=== PATIENT | male | born 1995 | race Caucasian/White ===

== ENCOUNTER 2016-07-09 03:46 | Inpatient (IN) | payer BC, OTHER ==
[~2016-07-09] VITALS: Ht 175.3 cm; Wt 65.0 kg
[2016-07-09 04:17] LABS: MEAN CORPUSCULAR HEMOGLOBIN 29.2 pg (27.0-33.0); MEAN CORPUSCULAR HGB CONC 34.5 g/dl (32.0-36.5); MEAN CORPUSCULAR VOLUME 84.4 fl (80.0-96.0); RED CELL DISTRIBUTION WIDTH 13.6 % (11.5-14.5); WHITE BLOOD COUNT 9.3 K/mm3 (4.0-10.0)
[2016-07-09 04:36] LABS: AMPHETAMINES LEVEL URINE POSITIVE (NEGATIVE)
[2016-07-09 04:37] LABS: BENZODIAZEPINES URINE NEGATIVE (NEGATIVE); COCAINE METABOLITE URINE NEGATIVE (NEGATIVE); CONTROL LINE INT CTR LINE PRESENT; METHADONE URINE NEGATIVE (NEGATIVE); OPIATES URINE NEGATIVE (NEGATIVE); TRICYCLIC ANTIDEPRESS URINE NEGATIVE (NEGATIVE)
[2016-07-09 04:44] LABS: ALBUMIN 4.5 GM/DL (3.2-5.2); ALBUMIN/GLOBULIN RATIO 1.15 (1.00-1.93); ALKALINE PHOSPHATASE 182 U/L (45-117); ALT/SGPT 118 U/L (12-78); ANION GAP 13 MEQ/L (8-16); AST/SGOT 145 U/L (15-37); BILIRUBIN,DIRECT 0.3 MG/DL (0.0-0.2); BILIRUBIN,TOTAL 1.2 MG/DL (0.2-1.0); BLOOD UREA NITROGEN 18 MG/DL (7-18); CALCIUM LEVEL 8.9 MG/DL (8.5-10.1); CARBON DIOXIDE LEVEL 23 MEQ/L (21-32); CHLORIDE LEVEL 102 MEQ/L (98-107); CREATININE FOR GFR 1.03 MG/DL (0.70-1.30); GLOMERULAR FILTRATION RATE > 60.0 (>60); GLUCOSE, FASTING 76 MG/DL (70-105); POTASSIUM SERUM 4.2 MEQ/L (3.5-5.1); SODIUM LEVEL 138 MEQ/L (136-145); TOTAL PROTEIN 8.4 GM/DL (6.4-8.2)
[2016-07-09] MEDS ORDERED: traZODone 50 MG TAB PO PRN (05:45)
[2016-07-09] MEDS ORDERED: ACETAMINOPHEN TAB 650MG DOSE (2X325MG) PO PRN (05:45)
[2016-07-09] MEDS ORDERED: MAALOX 30 ML SUSP *UDC PO PRN (05:45)
[2016-07-09] MEDS ORDERED: MOM 30ML SUSPENSION UDC PO PRN (05:45)
[2016-07-09 08:16] VITALS: BP 122/57
--- NOTE | 2016-07-09 08:19 | EDDOCDS ---
Physician Documentation [facility] Name: Teofilo Harris Age: 21 yrs Sex: Male : 1995 Arrival Date: 07/09/2016 Time: 03:46 Bed U3 Private MD: Disposition: 07/09/16 05:18 Hospitalization ordered by Zakia Márquez for Inpatient Admission. Preliminary diagnosis is Major depressive disorder, single episode. - Bed requested for Admit. - Status is Inpatient Admission. jc4 - Condition is Stable. - Problem is new. - Symptoms are unchanged. Historical: - Allergies: No known drug Allergies; - Home Meds: 1. none - PMHx: none; - PSHx: none; - Social history: Smoking status: Patient uses tobacco products, heavy tobacco smoker. No barriers to communication noted, The patient speaks fluent Turkmen, Speaks appropriately for age. - Family history: Not pertinent. - : The pt / caregiver states he / she is not on anticoagulants. Home medication list is obtained from the patient. - Exposure Risk Screening:: None identified. Vital Signs: 07/09 03:55 BP 142 / 83; Pulse 101; Resp 18; Temp 97.0(O); Pulse Ox 98% ; Weight 65.77 kg / 145 mas lbs; Height 5 ft. 9 in. (175.26 cm); Pain 7/10; 07:50 BP 122 / 57; Pulse 72; Resp 16; Temp 96.8(O); Pulse Ox 98% on R/A; pjf 03:55 Body Mass Index 21.41 (65.77 kg, 175.26 cm) [facility] MDM: 03:56 MHE Legal paperwork was scanned into [employer] and attached to record. cl 03:58 Consult PFS/PSA/Club Manager ordered. br1 03:58 Consult PFS/PSA/Club Manager: Patient's case requires discussion with on-call br1 Psychiatrist ordered. 03:58 PSA/PFS to call Nursing Network Systems Integrator, to enter patient data on [place] Safe Act if patient br1 involuntarily admitted or transferred for SI or HI ordered. 03:58 Confirm accurate psychiatric medication list and times of last dosage ordered. br1 03:58 Detain Pt Until Medically/PFS Cleared ordered. br1 03:58 Acetaminophen Level Ordered. EDMS 03:58 Basic Metabolic Profile Ordered. EDMS 03:58 Complete Blood Count Ordered. EDMS 03:58 Drug Eval Toxicology ED Only Ordered. EDMS 03:58 Ethyl Alcohol (ethanol) Ordered. EDMS 03:58 Liver Profile Ordered. EDMS 03:58 Salicylate Level Ordered. EDMS 03:58 Thyroid Stimulating Hormone Ordered. EDMS 04:19 Financial registration complete. pm4 04:20 [facility] Payment Agreement was scanned into [employer] and attached to record. pm4 05:00 Consult PFS/PSA/Club Manager complete. cl 05:00 Consult PFS/PSA/Club Manager: Patient's case requires discussion with on-call cl Psychiatrist complete. 05:00 PSA/PFS to call Nursing Network Systems Integrator, to enter patient data on [place] Safe Act if patient cl involuntarily admitted or transferred for SI or HI complete. 05:14 Acetaminophen Level Reviewed. br1 05:14 Drug Eval Toxicology ED Only Reviewed. br1 05:14 Liver Profile Reviewed. br1 05:14 Salicylate Level Reviewed. br1 05:14 Basic Metabolic Profile Reviewed. br1 05:14 Complete Blood Count Reviewed. br1 05:14 Ethyl Alcohol (ethanol) Reviewed. br1 05:14 Thyroid Stimulating Hormone Reviewed. br1 05:14 Consult PFS/PSA/Socail Worker: Cleared medically for eval ordered. br1 05:20 Consult PFS/PSA/Socail Worker: Cleared medically for eval complete. cl 05:35 MHE Legal paperwork was scanned into [employer] and attached to record. cl 05:35 Admit to IMHU: ordered. EDMS 05:36 REGULAR DIET ordered. EDMS Signatures: Dispatcher [employer] EDMS Chadwick Jose, PSA PSA cl Jonny Parikh MD MD br1 Jasmin Childers, RN RN jc4 Caitlin Cordova RN RN sls1 Aimee Corey,RN RN nn1 Matthew Walters, Reg Reg pm4 The chart was reviewed and I authenticate all verbal orders and agree with the evaluation and treatment provided.Attachments: 04:20 [facility] Payment Agreement pm4 MTDD
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
--- NOTE | 2016-07-09 10:48 | HPEPDOC ---
Medical History and Physical Date of Admission Jul 09, 2016 at 08:10 History and Physical PCP: Dr Call ATTENDING: Dr. Stanton Gaines HPI: 21yoM admitted to [facility] for unspecified depressive disorder, being medically examined today. Patient states he fell on the ground approximately 2 months ago and injured his left shoulder. He states he has left shoulder pain related to this. He was advised to wear a sling at the time however he states he only wore it for approximately 2 hours. He has pain with range of motion of the shoulder. He denies radiation of pain down the arm or up into his neck. He denies weakness in arm. He denies numbness or tingling in the hand or arm. He states it is an achy pain. He denies neck pain. Denies elbow pain. Denies wrist pain. Denies reduced vice president of human resources strength. He denies low back pain. No weakness, numbness, or tingling in lower extremities. He reports a laceration of his left middle finger which he states occurred Thursday evening when he was cutting a dog rope. This occurred with a razor knife. He does not recall his last tetanus vaccination. Denies any fevers, chills, weakness, fatigue, BARRERA, CP, SOB, cough, palpitations, abdominal pain, N/V /D or changes in bowel or bladder habits. PMHx: ADHD Substance use Tobacco use Left shoulder pain PSHX: Denies SOCHX: Resides in: [facility] Marital Status: Kids: 1 Employment: Unemployed Tobacco use: One pack per day ETOH: Twice per month 5-6 drinks Illicit Drugs: Marijuana daily. Methamphetamine, heroin, crack cocaine, cocaine. Adderall few times per month, gets from street. IV Drug Use: Heroin. Subsequently Pt states "anything" but does not elaborate. Tattoos done unprofessionally: Patient has several tattoos, patient states all are completed unprofessionally. No previous HIV/hepatitis screening per patient. FAMHX: Mother: Alive, well Father: , suicide. 2005 Siblings: 2 brothers, 2 sisters Alive, well Children: Alive, well Unexpected deaths due to medical reasons: None. ROS: As noted in HPI, otherwise 11pt ROS of systems reviewed and unremarkable PE: GEN: 21 yoM, appears stated age. Well-nourished, well developed. No acute distress. Alert and oriented x 3. Reluctant at times to provide history, avoids eye contact. Somewhat agitated at times. HEENT: Normocephalic, atraumatic. Pupils are equal, round, and reactive to light. Extraocular movements are intact. No nystagmus appreciated. Sclera are nonicteric. Conjunctiva without injection. Nose midline. Nasal turbinates without bogginess. EACs both patent BL. TMs both visualized and gross with good cone of light, no bulging or erythema. No facial asymmetry. Moist mucous membranes. Dentition fair. Pharynx pink and moist, no cobblestoning. Neck supple , trachea midline. No lymphadenopathy or thyromegaly appreciated. CHEST: Regular rate and rhythm, +S1, +S2 LUNGS: Clear to auscultation bilaterally. No wheezes, rales, or rhonchi. Breathing appears symmetric and easy. Patient is speaking in full sentences. No accessory muscle use. ABD: Round, soft, non-tender, non-distended. +Bowel sounds throughout. No rebound or guarding. No costovertebral angle tenderness. EXT: Pulses 2+ bilaterally dorsalis pedis and radial. No lower extremity edema appreciated. SKIN: [place], dry, warm. Capillary refill <2sec. No rashes. There is an approximate 1 cm laceration palmar aspect distal phalanx left middle finger. No drainage/bleeding. no erythema. NEURO: Alert and oriented x 3. Cranial nerves III-XII are intact. No focal deficits appreciated. There is no noted deformity of the left shoulder. There is tenderness with palpation around the joint. Patient has good range of motion and strength although reports pain with testing. Normal sensation in left upper extremity. Normal vice president of human resources strength. EKG: pending. A&P: 21yoM admitted to [facility] for unspecified depressive disorder 1. Psych. Plan per Psychiatry. Obtain baseline EKG to assure the safety of psychiatric medications as they can prolong the QT interval. 2. Nicotine dependence. Patch available. 3. Left Finger laceration. Apply bacitracin. Dry dressing BID. Monitor for signs of infection. Update Tdap. 4. Left shoulder pain. Check XR Left shoulder. Tylenol as needed. 5. IVDU/history of tattoos completed unprofessionally. Patient is adamantly declining HIV screening. 6. Elevated LFTs. Also noted to be elevated ED visit 06/27. Add hepatitis profile to admission labs. Check RUQ U/S. Recheck CMP in AM. Pt aware of testing. 7. Follow up with PCP on discharge. Dr Call. 8. Substance abuse. Per psychiatry. 9. Staff member present throughout examination, safety scientist Ed. Vital Signs Vital Signs Label Value Date Time Patient Temperature 96.8 degrees F 07/09/16 0816 Pulse 72 07/09/16 0816 Respiratory Rate 16 bpm 07/09/16 0816 Blood Pressure Assessment 122/57 (78) 07/09/16 0816 Laboratory Data Labs 24H Laboratory Tests 2 07/09/16 04:05: Acetaminophen Level < 2.0L, Aspartate Amino Transf (AST/SGOT) 145H, Alanine Aminotransferase (ALT/SGPT) 118H, Alkaline Phosphatase 182H, Total Bilirubin 1.2H, Direct Bilirubin 0.3H, Albumin 4.5, Albumin/Globulin Ratio 1.15, Anion Gap 13, Calcium Level 8.9, Ethyl Alcohol Level < 0.003, Glomerular Filtration Rate > 60.0, Salicylates Level 1.8L, Thyroid Stimulating Hormone (TSH) 1.020, Total Protein 8.4H 07/09/16 04:06: Urine Amphetamine Level POSITIVEH, Urine Benzodiazepines Screen NEGATIVE, Urine Cannabinoids POSITIVEH, Urine Cocaine Metabolite NEGATIVE, Urine Opiates Screen NEGATIVE, Urine Barbiturates, Qualitative NEGATIVE, Urine Methadone Screen NEGATIVE, Urine Tricyclic Antidepressants NEGATIVE CBC/BMP Laboratory Tests 07/09/16 04:05 Red Blood Count 5.39, Mean Corpuscular Volume 84.4, Mean Corpuscular Hemoglobin 29.2, Mean Corpuscular Hemoglobin Concent 34.5, Red Cell Distribution Width 13.6 Home Medications No Active Prescriptions or Reported Meds Allergies Coded Allergies: No Known Allergies (Unverified , 07/09/16) Melva Ochoa Jul 09, 2016 10:48
[2016-07-09] MEDS: BACITRACIN OINT 30GM TOP SCH ×2 (11:35→21:29)
[2016-07-09] MEDS: NICOTINE 21MG/24HR 1 EA TRANSDERMAL TD SCH (11:36)
[2016-07-09] MEDS ORDERED: ADACEL/BOOSTRIX VACCINE (DIPHTH/PERTUSS/ACELL/TETANUS)0.5ML SYR (90715) IM ONE (13:00)
--- NOTE | 2016-07-09 13:01 | REP ---
Left shoulder series: Three views. History: Pain. Findings: The left glenohumeral and acromioclavicular joints are normally aligned. No fracture or subluxation is seen. Periarticular soft tissues are unremarkable. Impression: Negative left shoulder views. Signed by Bro Paige MD 07/09/2016 12:52 P
--- NOTE | 2016-07-09 18:05 | HPEPDOC ---
[facility] History & Physical History and Physical DATE OF ADMISSION: Jul 09, 2016 at 08:10 CHIEF COMPLAINT: "I didn't want to kill myself, I don't know how I ended up here , I don't need to be here." HISTORY OF THE PRESENT ILLNESS: Patient is a patient is 21-year-old, , father, unemployed male who was brought into ER by [facility] on a legal pickup order. Patient indicates he does not know why the police came to his house, indicates he had been arguing with his , informs va underwriter "I don't know what the fight was about." Per record, patient was seen in the emergency room in 2012 for similar problem involving verbal altercation in home at which time he apparently threatened to kill other alliance party, self and blow up a school. Patient denies memory of aforementioned events. Regarding current admission, per record, [facility] responded to call involving a domestic dispute, patient was found to have engaged in suicide preparatory behavior involving hanging a noose and arranging a ladder in garage. Patient states, "the rope had been there before I ever moved in and I had brought the ladder into the garage because I needed it for something else." When questioned about laceration to fingers which, per record, occurred while patient was cutting rope, patient indicates "I was cutting rope earlier in the day to fix my dog's chain, it had nothing to do with me wanting to kill myself." Per record, dispute with pertained to not allowing him to go purchase drugs. Patient denies current symptoms of anxiety and depression, denies suicidal and homicidal ideation, denies audiovisual hallucinations, and denies urge to engage in self-injurious behavior. Patient denies history of suicide attempt, informs va underwriter 1 at age 10 or 11 he thought about killing himself after his father committed suicide by shotgun. Patient indicates at the time he possessed no plan or intent. Patient initially denies any substance use/abuse at time of incident, then informs va underwriter he had had "a couple of beers, maybe 2 or 3" just prior to altercation with . When asked about his UDS results, patient indicates he has a history of being diagnosed with ADHD, has a history of taking Adderall and had taken some "left over medication; I had some saved, it was my last one" just prior to incident. Patient denies symptoms of withdrawal or craving. Patient denies history of discomfort in social settings, denies history of panic , denies compulsive behaviors, and denies history of irritability, agitation, aggression, denies history of unsanctioned violence and denies having access to weapons. Patient denies symptoms of reexperiencing, avoidance, and hypervigilance, denies history of mood instability, hypomania or staci, and denies dissociative symptoms. When asked about impulsivity patient states, "maybe," indicates appetite is stable and denies recent changes to weight. Patient denies challenges with sleep describing as "great," denies nightmares symptoms. Patient informs va underwriter he feels prepared to discharge to home. When asked about his and child's whereabouts patient states, "they might be her parents or they might be home I'm not sure." Patient denies having safety concerns related to himself, his , or his child in the home. PAST PSYCHIATRIC HISTORY: Prior Psychiatric Disorder: Patient denies, however, was seen in ER in 2012 for similar symptoms, in addition to expression of HI. Out Patient Treatment: Patient denies, however, told behavioral health worker at intake he participated in outpatient treatment X 1 6 years ago for substance abuse Suicidal/Self injurious: Patient denies history of suicide attempt, endorses suicidal ideation with no plan or intent X 1 at age 10 or 11 just after father' s suicide Psychotropic Medication History: Adderall XR 25 mg po BID, states he was last seen by provider and prescribed medication in 2014 and notes he would still be taking medication and had been covered by his insurance. Patient denies history of taking other psychotropic medications. Of note: I-Stop query completed, no data on patient found in system. MEDICAL HISTORY: Patient denies chronic health concerns, denies history of seizure and head injury. Patient states he fell 2 months ago and injured shoulder, has sling and does not wear. Laceration to finger, denies symptoms indicating infection and denies pain. Elevated LFT's with Hep C results pending. FAMILY PSYCHIATRIC HISTORY: Patient denies family history of psychiatric problems. When questioned about father's suicide by shotgun patient states "he was an alcoholic." Patient denies knowledge of other family members participation in inpatient or outpatient psychiatric treatment, denies knowledge of family members taking psychotropic medications. SOCIAL HISTORY: Patient indicates he was born and raised in [place], [place], was raised as mother, indicates father committed suicide by way of shotgun when patient was 10 or 11 years old. Patient indicates he has 4 siblings , notes he feels he has adequate support system. Patient lives in a trailer with his of 5 months, has a 1 year 9 month old child with , denies marital tension and indicates marriage is positive and supportive. Patient denies previous marriages or children from other relationships. Patient denies history of abuse, trauma or witnessing domestic violence in the home while growing up. Patient is unemployed and states he spends much of his days caring for his son as his is employed as a caregiver to senior citizens. 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 SUBSTANCE ABUSE HISTORY: Patient initially denies history of substance abuse. Patient indicates he smokes marijuana "daily, as much as I can. My encourages me to smoke because it makes my ADHD go away." Patient's reports alcohol consumption 2 times per month, 5-6 drinks per episode. Patient smokes approximately 1 pack of cigarettes per day. Patient also states he takes "leftover" Adderall which he states he was previously prescribed, then states he last saw a prescriber in 2014. Per record, it appears patient has a history of being diagnosed with polysubstance abuse including IV heroin use, crack cocaine, and cocaine. LEGAL HISTORY: Patient states to a half years ago he was in care home for 9 months for probation violation. Patient is evasive but notes he was on probation for driving without a license 11 times. Per record, it appears patient was in care home for drug-related charges and harassment. CURRENT/HOME MEDICATIONS: Patient denies currently taking prescribed medications , notes he occasionally took Adderall that he had "left over" from prior prescription. ALLERGIES: Please see below. LABORATORY DATA: Please see below. Labs on intake indicated elevated bilirubin, AST, ALT, alkaline phosphatase, and protein. Hep C lab results pending. UDS on admission was positive for amphetamine and cannabinoids. 07/09/16 EKG - SINUS RHYTHM NO PRIOR TRACING IN THE SYSTEM. MINIMAL ST SEGMENT CHANGES NOTED MAY BE RELATED TO EARLY REPOLARIZATION REVIEW OF SYSTEMS: Please refer to PA evaluation in record VITAL SIGNS: B/P 122/57, P 72, R 16, T 96.8 MENTAL STATUS EXAMINATION: Patient is a 21 year old unemployed, , father of 1 child male, who is superficially cooperative, evasive, presents as disheveled, dressed in hospital clothing, of thin build, appears older than stated age. Speech: Is of normal rate, rhythm, volume, coherent Thought processes: Clear, goal-directed Rate of thoughts: Within normal limits. Thought content: Logical. Abstract reasoning: Appears intact Associations: Intact Abnormal or psychotic thoughts: denies hallucinations, Delusions, Preoccupation with violence, Homicidal or suicidal ideation, and Obsessions.] Judgment: Poor Insight: Poor Oriented to: Time, place and person. Recent and Remote Memory: Appears intact, though patient reports he is unable to remember events which occurred just prior to police bringing him to Hospital. Attention Span and Concentration: Limited. Language: Normal. Fund of knowledge: Appears adequate but requires further evaluation. Mood: "Good." No lability reported or noted Affect: Constricted ASSESSMENT: Patient appears to be adjusting to unit, isolates to room at times, is visible on unit at other times, has begun attending some groups. Patient has been eating regularly and denies challenges related to sleep. Patient is evasive , generally denies memory of events which occurred just prior to hospitalization , indicates he and are arguing for unknown reason, denies marital tension. Patient minimizes events leading to current hospitalization, is superficially cooperative with va underwriter, denies need to be in psychiatric hospital, denies feeling suicidal prior to police responding, and indicates he feels prepared for discharge today. Patient denies suicidal and homicidal ideation and is able to agree to alert staff should symptoms of anxiety, depression, or suicidality emerge/reemerge. Patient denies need for medication to address symptoms of anxiety depression, makes request for Adderall XR 25 mg by mouth twice a day, states was last prescribed Adderall by a provider in 2012. Patient states he has had phone "good" contact with , indicates a friend of his is planning to visit him this evening. Patient indicates discharge plan is for him to return home to residence where he lives with and child. DIAGNOSES: Unspecified mood disorder, polysubstance use disorder, rule out major depressive disorder, ADHD by report, PROBLEM LIST: Suicidal ideation Anxiety Depression Impulsivity Substance abuse issues Limited judgment/insight Financial strain Relationship tension MANAGEMENT PLAN: Encourage patient to consider taking psychotropic medication to address symptoms of anxiety and depression if appropriate Maintain safety precautions Patient to attend groups and participate in unit programming to develop coping strategies Obtain collateral information in effort to further evaluate patient's psychiatric status and viability of discharge plan Evaluate need to contact CPS Engage patient in discharge planning process and arrange meeting with support system to ensure safe discharge planning when appropriate Patient to follow up with PCM upon discharge ESTIMATED LENGTH OF STAY: 5 -7 days. TIME SPENT COUNSELING AND COORDINATING INITIAL CARE: 50 minutes. Laboratory Data 24H Labs Laboratory Tests 2 07/09/16 04:05: Acetaminophen Level < 2.0L, Aspartate Amino Transf (AST/SGOT) 145H, Alanine Aminotransferase (ALT/SGPT) 118H, Alkaline Phosphatase 182H, Total Bilirubin 1.2H, Direct Bilirubin 0.3H, Albumin 4.5, Albumin/Globulin Ratio 1.15, Anion Gap 13, Calcium Level 8.9, Ethyl Alcohol Level < 0.003, Glomerular Filtration Rate > 60.0, Hepatitis A IgM Antibody NEGATIVE, Hepatitis B Core IgM Antibody NEGATIVE, Hepatitis B Surface Antigen NEGATIVE, Hepatitis C Antibody Index > 11.0H, Salicylates Level 1.8L, Thyroid Stimulating Hormone (TSH) 1.020, Total Protein 8.4H 07/09/16 04:06: Urine Amphetamine Level POSITIVEH, Urine Benzodiazepines Screen NEGATIVE, Urine Cannabinoids POSITIVEH, Urine Cocaine Metabolite NEGATIVE, Urine Opiates Screen NEGATIVE, Urine Barbiturates, Qualitative NEGATIVE, Urine Methadone Screen NEGATIVE, Urine Tricyclic Antidepressants NEGATIVE CBC/BMP Laboratory Tests 07/09/16 04:05 Red Blood Count 5.39, Mean Corpuscular Volume 84.4, Mean Corpuscular Hemoglobin 29.2, Mean Corpuscular Hemoglobin Concent 34.5, Red Cell Distribution Width 13.6 Medications No Active Prescriptions or Reported Meds Allergies Coded Allergies: No Known Allergies (Unverified , 07/09/16) Sue Lin Jul 09, 2016 18:05
[2016-07-09 18:13] VITALS: BP 127/58
--- NOTE | 2016-07-09 18:53 | ECGEPIP ---
Stationary ECG Study [facility] Test Date: 2016-07-09 Pat Name: PETAR SOSA Department: Room: [place] [address] Gender: M Steel Roller: LORY : 1995 Requested By: Melva Ochoa Order Number: [id number] Reading MD: Lenin Ramos Measurements Intervals [place] Rate: 73 P: 44 WV: 129 QRS: 76 QRSD: 90 T: 67 QT: 375 QTc: 414 Interpretive Statements SINUS RHYTHM NO PRIOR TRACING IN THE SYSTEM. MINIMAL ST SEGMENT CHANGES NOTED MAY BE RELATED TO EARLY REPOLARIZATION Electronically Signed On 07-09-2016 18:52:50 EST by Lenin Ramos
[2016-07-10 06:39] VITALS: BP 136/75
[2016-07-10 06:51] LABS: ALBUMIN/GLOBULIN RATIO 1.14 (1.00-1.93); ALKALINE PHOSPHATASE 177 U/L (45-117); ALT/SGPT 89 U/L (12-78); ANION GAP 5 MEQ/L (8-16); AST/SGOT 70 U/L (15-37); BILIRUBIN,TOTAL 0.5 MG/DL (0.2-1.0); BLOOD UREA NITROGEN 22 MG/DL (7-18); CARBON DIOXIDE LEVEL 31 MEQ/L (21-32); CHLORIDE LEVEL 105 MEQ/L (98-107); CREATININE FOR GFR 1.03 MG/DL (0.70-1.30); GLOMERULAR FILTRATION RATE > 60.0 (>60); GLUCOSE, FASTING 88 MG/DL (70-105); POTASSIUM SERUM 4.2 MEQ/L (3.5-5.1); SODIUM LEVEL 141 MEQ/L (136-145); TOTAL PROTEIN 7.5 GM/DL (6.4-8.2)
--- NOTE | 2016-07-10 07:09 | REP ---
Clinical: Elevated liver function tests. Technique: He scale ultrasound using curved array transducer. Findings: The liver and pancreas are normal in contour, size, and echogenicity without focal hepatic or pancreatic lesions identified. The gallbladder is normal without gallstones, wall thickening or pericholecystic fluid. No biliary ductal dilatation is appreciated, and the common bile duct measures 2.3 mm diameter. The right kidney is normal in reniform shape without hydronephrosis and measures 9.8 x 5.9 x 4.4 cm. No ascites. Visualized portions of the abdominal aorta normal. Impression: Normal right upper quadrant and gallbladder abdominal ultrasound. Signed by Andres Osborn MD 07/10/2016 07:00 A
[2016-07-10] MEDS: NICOTINE 21MG/24HR 1 EA TRANSDERMAL TD SCH (09:45)
[2016-07-10] MEDS: BACITRACIN OINT 30GM TOP SCH ×2 (09:46→20:13)
[2016-07-10 13:22] LABS: AMPHETAMINES LEVEL URINE POSITIVE (NEGATIVE); BENZODIAZEPINES URINE NEGATIVE (NEGATIVE); COCAINE METABOLITE URINE NEGATIVE (NEGATIVE); CONTROL LINE INT CTR LINE PRESENT; METHADONE URINE NEGATIVE (NEGATIVE); OPIATES URINE NEGATIVE (NEGATIVE); TRICYCLIC ANTIDEPRESS URINE NEGATIVE (NEGATIVE)
--- NOTE | 2016-07-10 14:12 | IPNPDOC ---
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 Patient denies all symptoms of anxiety and depression, suicidal and homicidal ideation, audiovisual hallucinations, and urge to engage in self-injurious behavior. Patient continues to deny need for inpatient treatment, continues to deny that he was engaging in preparatory behavior to hang self prior to hospitalization. Patient indicates he still does not remember what he was arguing with his about, remains vague about legal history but notes today he was on probation for multiple consonant driving without a license, went to halfway for violating probation due to drug-related charges. Patient indicates harassment charge occurred in 2011 and was an unrelated issue. Patient denies challenges with sleep, indicates appetite, concentration and focus, and energy levels are "fine." Patient continues to deny symptoms of irritability or agitation, impulsivity, withdrawal or craving, and physical pain. Patient today indicates he plans to discharge to home of a friend noting, "until I can go back home," is evasive when asked why he cannot return home but notes "my is now staying with her parents but she may be going back home." Patient continues to deny safety issues related to self, , or child in the home. Of note: I-Stop query completed 07/09/16, no data on patient found in system. CURRENT MEDICATIONS: Please see below. VITAL SIGNS: Please see below. NEW TEST RESULTS: Labs on intake indicated elevated bilirubin, AST, ALT, alkaline phosphatase, and protein. Hep C lab results pending. UDS on admission was positive for amphetamine and cannabinoids. 07/09/16 EKG - SINUS RHYTHM NO PRIOR TRACING IN THE SYSTEM. MINIMAL ST SEGMENT CHANGES NOTED MAY BE RELATED TO EARLY REPOLARIZATION. PA is monitoring elevated LFTs and laceration to finger; patient denies symptoms indicating infection and denies pain. Liver ultrasound completed 07/10/16 with normal results. MENTAL STATUS EXAMINATION: Patient is a 21 year old unemployed, , father of 1 child male, who remains superficially cooperative, evasive, presents with improved personal hygiene, dressed in hospital clothing, of thin build, appears stated age. Speech: Is of normal rate, rhythm, volume, coherent Thought processes: Clear, goal-directed Rate of thoughts: Within normal limits. Thought content: Logical. Abstract reasoning: Appears intact Associations: Intact Abnormal or psychotic thoughts: denies hallucinations, Delusions, Preoccupation with violence, Homicidal or suicidal ideation, and Obsessions.] Judgment: Poor Insight: Poor Oriented to: Time, place and person. Recent and Remote Memory: Appears intact, though patient reports he is unable to remember events which occurred just prior to police bringing him to Hospital. Attention Span and Concentration: Limited. Language: Normal. Fund of knowledge: Appears adequate but requires further evaluation. Mood: "Good, fine, no problem." No lability reported or noted Affect: Constricted DIAGNOSES: Unspecified mood disorder, polysubstance use disorder, rule out major depressive disorder, ADHD by report, ASSESSMENT: Patient appears to be adjusting to unit, is visible in milieu, has been attending groups, engaging with select peers. Patient has been eating regularly and denies challenges related to sleep. Patient remains evasive, continues to deny memory of events which occurred just prior to hospitalization , indicates he and were arguing for unknown reason, denies marital tension. Patient continues to minimize events leading to current hospitalization , remains superficially cooperative with marketing copywriter, denies need to be in psychiatric hospital, denies feeling suicidal prior to police responding, and indicates he feels prepared for discharge "anytime." Patient has declined to sign an ISAIAH for contact with CPS, development coordinator is attempting to obtain collateral information to ensure safe discharge planning. Patient denies suicidal and homicidal ideation and is able to agree to alert staff should symptoms of anxiety, depression, or suicidality emerge/reemerge. Patient continues to deny need for medication to address symptoms of anxiety depression , makes no request today for Adderall XR 25 mg by mouth twice a day. Patient states he maintains phone contact , is evasive, but indicates today plan is now to discharge to home with friend until he and are able to agree that he may return to the family home. MANAGEMENT PLAN: Encourage patient to consider taking psychotropic medication to address symptoms of anxiety and depression if appropriate Maintain safety precautions Patient to attend groups and participate in unit programming to develop coping strategies Discharge cornea are has initiated process for obtaining collateral information in effort to further evaluate patient's psychiatric status and viability of discharge plan Evaluate need to contact CPS Engage patient in discharge planning process and arrange meeting with support system to ensure safe discharge planning when appropriate Patient to follow up with PCM upon discharge TIME SPENT: 35 minutes. Vital Signs Vital Signs Date Time Temp Pulse Resp B/P Pulse Ox O2 Delivery O2 Flow Rate FiO2 07/10/16 06:39 98.1 66 16 136/75 Laboratory Data 24H Labs Laboratory Tests 2 07/10/16 00:00: Urine Amphetamine Level POSITIVEH, Urine Benzodiazepines Screen NEGATIVE, Urine Cannabinoids POSITIVEH, Urine Cocaine Metabolite NEGATIVE, Urine Opiates Screen NEGATIVE, Urine Barbiturates, Qualitative NEGATIVE, Urine Methadone Screen NEGATIVE, Urine Tricyclic Antidepressants NEGATIVE 07/10/16 06:24: Blood Urea Nitrogen 22H, Creatinine 1.03, Sodium Level 141, Potassium Level 4.2 , Chloride Level 105, Carbon Dioxide Level 31, Calcium Level 9.0, Aspartate Amino Transf (AST/SGOT) 70H, Alanine Aminotransferase (ALT/SGPT) 89H, Alkaline Phosphatase 177H, Total Bilirubin 0.5#, Total Protein 7.5, Albumin 4.0, Albumin/ Globulin Ratio 1.14, Anion Gap 5L, Glomerular Filtration Rate > 60.0 CBC/BMP Laboratory Tests 07/10/16 06:24 Calcium Level 9.0, Aspartate Amino Transf (AST/SGOT) 70 H, Alanine Aminotransferase (ALT/SGPT) 89 H, Alkaline Phosphatase 177 H, Total Bilirubin 0.5 #, Total Protein 7.5, Albumin 4.0 Current Medications Current Medications Acetaminophen (Tylenol) 650 mg Q6HP PRN PO HEADACHE or DISCOMFORT; Start at 05:45; Stop 08/08/16 at 05:44 Al Hydrox/Mg Hydrox/Simethicone (Mylanta) 30 ml Q4HP PRN PO HEARTBURN/ INDIGESTION; Start 07/09/16 at 05:45; Stop 08/08/16 at 05:44 Bacitracin (Bacitracin Oint) 1 dose BID TOP Last administered on 07/10/16t 09: 46; Start 07/09/16 at 09:00; Stop 08/08/16 at 08:59 Home Med (Med Rec Complete!) ASDIRECTED XX ; Start 07/09/16 at 06:00; Stop at 06:05; Status DC Magnesium Hydroxide (Milk Of Magnesia) 30 ml DAILYPRN PRN PO CONSTIPATION; Start 07/09/16 at 05:45; Stop 08/08/16 at 05:44 Nicotine (Nicoderm Cq 21mg) 1 patch DAILY TD Last administered on 07/10/16 09: 45; Start 07/09/16 at 09:00; Stop 08/08/16 at 08:59 Trazodone HCl (Desyrel) 50 mg QHSP PRN PO INSOMNIA; Start 07/09/16 at 05:45; Stop 08/08/16 at 05:44 Allergies Coded Allergies: No Known Allergies (Unverified , 07/09/16) Sue Lin Jul 10, 2016 14:12 Aminotransferase (ALT/SGPT) 89 H, Alkaline Phosphatase 177 H, Total Bilirubin 0.5 #, Total Protein 7.5, Albumin 4.0 Current Medications Current Medications Acetaminophen (Tylenol) 650 mg Q6HP PRN PO HEADACHE or DISCOMFORT; Start at 05:45; Stop 08/08/16 at 05:44 Al Hydrox/Mg Hydrox/Simethicone (Mylanta) 30 ml Q4HP PRN PO HEARTBURN/ INDIGESTION; Start 07/09/16 at 05:45; Stop 08/08/16 at 05:44 Bacitracin (Bacitracin Oint) 1 dose BID TOP Last administered on 07/10/16 09: 46; Start 07/09/16 at 09:00; Stop 08/08/16 at 08:59 Home Med (Med Rec Complete!) ASDIRECTED XX ; Start 07/09/16 at 06:00; Stop at 06:05; Status DC Magnesium Hydroxide (Milk Of Magnesia) 30 ml DAILYPRN PRN PO CONSTIPATION; Start 07/09/16 at 05:45; Stop 08/08/16 at 05:44 Nicotine (Nicoderm Cq 21mg) 1 patch DAILY TD Last administered on 07/10/16 09: 45; Start 07/09/16 at 09:00; Stop 08/08/16 at 08:59 Trazodone HCl (Desyrel) 50 mg QHSP PRN PO INSOMNIA; Start 07/09/16 at 05:45; Stop 08/08/16 at 05:44 Allergies Coded Allergies: No Known Allergies (Unverified , 07/09/16) Sue Lin Jul 10, 2016 14:12 Impulsivity Substance abuse issues Limited judgment/insight Financial strain Relationship tension MANAGEMENT PLAN: Encourage patient to consider taking psychotropic medication to address symptoms of anxiety and depression if appropriate Maintain safety precautions Patient to attend groups and participate in unit programming to develop coping strategies Obtain collateral information in effort to further evaluate patient's psychiatric status and viability of discharge plan Evaluate need to contact CPS Engage patient in discharge planning process and arrange meeting with support system to ensure safe discharge planning when appropriate Patient to follow up with PCM upon discharge ESTIMATED LENGTH OF STAY: 5 -7 days. TIME SPENT COUNSELING AND COORDINATING INITIAL CARE: 50 minutes. Vital Signs Vital Signs Date Time Temp Pulse Resp B/P Pulse Ox O2 Delivery O2 Flow Rate FiO2 07/10/16 06:39 98.1 66 16 136/75 Laboratory Data 24H Labs Laboratory Tests 2 07/10/16 00:00: Urine Amphetamine Level POSITIVEH, Urine Benzodiazepines Screen NEGATIVE, Urine Cannabinoids POSITIVEH, Urine Cocaine Metabolite NEGATIVE, Urine Opiates Screen NEGATIVE, Urine Barbiturates, Qualitative NEGATIVE, Urine Methadone Screen NEGATIVE, Urine Tricyclic Antidepressants NEGATIVE 07/10/16 06:24: Blood Urea Nitrogen 22H, Creatinine 1.03, Sodium Level 141, Potassium Level 4.2 , Chloride Level 105, Carbon Dioxide Level 31, Calcium Level 9.0, Aspartate Amino Transf (AST/SGOT) 70H, Alanine Aminotransferase (ALT/SGPT) 89H, Alkaline Phosphatase 177H, Total Bilirubin 0.5#, Total Protein 7.5, Albumin 4.0, Albumin/ Globulin Ratio 1.14, Anion Gap 5L, Glomerular Filtration Rate > 60.0 CBC/BMP Laboratory Tests 07/10/16 06:24 Calcium Level 9.0, Aspartate Amino Transf (AST/SGOT) 70 H, Alanine Aminotransferase (ALT/SGPT) 89 H, Alkaline Phosphatase 177 H, Total Bilirubin 0.5 #, Total Protein 7.5, Albumin 4.0 Current Medications Current Medications Acetaminophen (Tylenol) 650 mg Q6HP PRN PO HEADACHE or DISCOMFORT; Start at 05:45; Stop 08/08/16 at 05:44 Al Hydrox/Mg Hydrox/Simethicone (Mylanta) 30 ml Q4HP PRN PO HEARTBURN/ INDIGESTION; Start 07/09/16 at 05:45; Stop 08/08/16 at 05:44 Bacitracin (Bacitracin Oint) 1 dose BID TOP Last administered on 07/10/16 09: 46; Start 07/09/16 at 09:00; Stop 08/08/16 at 08:59 Home Med (Med Rec Complete!) ASDIRECTED XX ; Start 07/09/16 at 06:00; Stop at 06:05; Status DC Magnesium Hydroxide (Milk Of Magnesia) 30 ml DAILYPRN PRN PO CONSTIPATION; Start 07/09/16 at 05:45; Stop 08/08/16 at 05:44 Nicotine (Nicoderm Cq 21mg) 1 patch DAILY TD Last administered on 07/10/16 09: 45; Start 07/09/16 at 09:00; Stop 08/08/16 at 08:59 Trazodone HCl (Desyrel) 50 mg QHSP PRN PO INSOMNIA; Start 07/09/16 at 05:45; Stop 08/08/16 at 05:44 Allergies Coded Allergies: No Known Allergies (Unverified , 07/09/16) Sue Lin Jul 10, 2016 14:12
[2016-07-10 18:00] VITALS: BP 124/59
[2016-07-11 06:48] VITALS: BP 130/73
[2016-07-11 07:29] LABS: ALBUMIN 3.8 GM/DL (3.2-5.2); ALBUMIN/GLOBULIN RATIO 1.06 (1.00-1.93); ALKALINE PHOSPHATASE 163 U/L (45-117); ALT/SGPT 77 U/L (12-78); ANION GAP 6 MEQ/L (8-16); AST/SGOT 51 U/L (15-37); BILIRUBIN,TOTAL 0.3 MG/DL (0.2-1.0); BLOOD UREA NITROGEN 19 MG/DL (7-18); CALCIUM LEVEL 8.8 MG/DL (8.5-10.1); CARBON DIOXIDE LEVEL 30 MEQ/L (21-32); CHLORIDE LEVEL 104 MEQ/L (98-107); CREATININE FOR GFR 0.94 MG/DL (0.70-1.30); GLOMERULAR FILTRATION RATE > 60.0 (>60); GLUCOSE, FASTING 89 MG/DL (70-105); POTASSIUM SERUM 4.4 MEQ/L (3.5-5.1); SODIUM LEVEL 140 MEQ/L (136-145); TOTAL PROTEIN 7.4 GM/DL (6.4-8.2)
[2016-07-11] MEDS: BACITRACIN OINT 30GM TOP SCH ×2 (09:00→21:00)
[2016-07-11] MEDS: NICOTINE 21MG/24HR 1 EA TRANSDERMAL TD SCH (09:13)
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
--- NOTE | 2016-07-11 09:18 | EDDOCDS ---
Physician Documentation [facility] Name: Teofilo Harris Age: 21 yrs Sex: Male : 1995 Arrival Date: 07/09/2016 Time: 03:46 Bed [facility] Private MD: Disposition: 07/09/16 05:18 Hospitalization ordered by Zakia Márquez for Inpatient Admission. Preliminary diagnosis is Major depressive disorder, single episode. - Bed requested for Admit. - Status is Inpatient Admission. jc4 - Condition is Stable. - Problem is new. - Symptoms are unchanged. Historical: - Allergies: No known drug Allergies; - Home Meds: 1. none - PMHx: none; - PSHx: none; - Social history: Smoking status: Patient uses tobacco products, heavy tobacco smoker. No barriers to communication noted, The patient speaks fluent Turkish, Speaks appropriately for age. - Family history: Not pertinent. - : The pt / caregiver states he / she is not on anticoagulants. Home medication list is obtained from the patient. - Exposure Risk Screening:: None identified. Vital Signs: 07/09 03:55 BP 142 / 83; Pulse 101; Resp 18; Temp 97.0(O); Pulse Ox 98% ; Weight 65.77 kg / 145 mas lbs; Height 5 ft. 9 in. (175.26 cm); Pain 7/10; 07:50 BP 122 / 57; Pulse 72; Resp 16; Temp 96.8(O); Pulse Ox 98% on R/A; pjf 03:55 Body Mass Index 21.41 (65.77 kg, 175.26 cm) [facility] MDM: 03:56 [facility] Legal paperwork was scanned into [employer] and attached to record. cl 03:58 Consult PFS/PSA/Parking Line Painter ordered. br1 03:58 Consult PFS/PSA/Parking Line Painter: Patient's case requires discussion with on-call br1 Psychiatrist ordered. 03:58 PSA/PFS to call Nursing Composite Boat Builder, to enter patient data on [place] Safe Act if patient br1 involuntarily admitted or transferred for SI or HI ordered. 03:58 Confirm accurate psychiatric medication list and times of last dosage ordered. br1 03:58 Detain Pt Until Medically/PFS Cleared ordered. br1 03:58 Acetaminophen Level Ordered. EDMS 03:58 Basic Metabolic Profile Ordered. EDMS 03:58 Complete Blood Count Ordered. EDMS 03:58 Drug Eval Toxicology ED Only Ordered. EDMS 03:58 Ethyl Alcohol (ethanol) Ordered. EDMS 03:58 Liver Profile Ordered. EDMS 03:58 Salicylate Level Ordered. EDMS 03:58 Thyroid Stimulating Hormone Ordered. EDMS 04:19 Financial registration complete. pm4 04:20 [facility] Payment Agreement was scanned into [employer] and attached to record. pm4 05:00 Consult PFS/PSA/Parking Line Painter complete. cl 05:00 Consult PFS/PSA/Parking Line Painter: Patient's case requires discussion with on-call cl Psychiatrist complete. 05:00 PSA/PFS to call Nursing Composite Boat Builder, to enter patient data on [place] Safe Act if patient cl involuntarily admitted or transferred for SI or HI complete. 05:14 Acetaminophen Level Reviewed. br1 05:14 Drug Eval Toxicology ED Only Reviewed. br1 05:14 Liver Profile Reviewed. br1 05:14 Salicylate Level Reviewed. br1 05:14 Basic Metabolic Profile Reviewed. br1 05:14 Complete Blood Count Reviewed. br1 05:14 Ethyl Alcohol (ethanol) Reviewed. br1 05:14 Thyroid Stimulating Hormone Reviewed. br1 05:14 Consult PFS/PSA/Socail Worker: Cleared medically for eval ordered. br1 05:20 Consult PFS/PSA/Socail Worker: Cleared medically for eval complete. cl 05:35 [facility] Legal paperwork was scanned into [employer] and attached to record. cl 05:35 Admit to [facility]: ordered. EDMS 05:36 REGULAR DIET ordered. EDMS 14:10 T-Sheet-- Draft Copy was scanned into [employer] and attached to record. gb Signatures: Dispatcher [employer] EDMS Chadwick Jose, PSA PSA cl Ibeth Manrique, Reg Reg gb Jonny Parikh MD MD br1 Jasmin Childers RN RN jc4 Caitlin Cordova RN RN sls1 Aimee CoreyRN RN nn1 Matthew Walters, Reg Reg pm4 The chart was reviewed and I authenticate all verbal orders and agree with the evaluation and treatment provided.Attachments: 04:20 [facility] Payment Agreement pm4 14:10 T-Sheet-- Draft Copy gb Chart Complete MTDD
--- NOTE | 2016-07-11 09:18 | EDDOCDS ---
Physician Documentation [facility] Name: Teofilo Harris Age: 21 yrs Sex: Male : 1995 Arrival Date: 07/09/2016 Time: 03:46 Bed U3 Private MD: Disposition: 07/09/16 05:18 Hospitalization ordered by Zakia Márquez for Inpatient Admission. Preliminary diagnosis is Major depressive disorder, single episode. - Bed requested for Admit. - Status is Inpatient Admission. [id number] - Condition is Stable. - Problem is new. - Symptoms are unchanged. Historical: - Allergies: No known drug Allergies; - Home Meds: 1. none - PMHx: none; - PSHx: none; - Social history: Smoking status: Patient uses tobacco products, heavy tobacco smoker. No barriers to communication noted, The patient speaks fluent Bulgarian, Speaks appropriately for age. - Family history: Not pertinent. - : The pt / caregiver states he / she is not on anticoagulants. Home medication list is obtained from the patient. - Exposure Risk Screening:: None identified. Vital Signs: 07/09 03:55 BP 142 / 83; Pulse 101; Resp 18; Temp 97.0(O); Pulse Ox 98% ; Weight 65.77 kg / 145 mas lbs; Height 5 ft. 9 in. (175.26 cm); Pain 7/10; 07:50 BP 122 / 57; Pulse 72; Resp 16; Temp 96.8(O); Pulse Ox 98% on R/A; pjf 03:55 Body Mass Index 21.41 (65.77 kg, 175.26 cm) [facility] MDM: 03:56 MHE Legal paperwork was scanned into [employer] and attached to record. cl 03:58 Consult PFS/PSA/Clinical Molecular Geneticist ordered. br1 03:58 Consult PFS/PSA/Clinical Molecular Geneticist: Patient's case requires discussion with on-call br1 Psychiatrist ordered. 03:58 PSA/PFS to call Nursing Nanny Babysitter, to enter patient data on [place] Safe Act if patient br1 involuntarily admitted or transferred for SI or HI ordered. 03:58 Confirm accurate psychiatric medication list and times of last dosage ordered. br1 03:58 Detain Pt Until Medically/PFS Cleared ordered. br1 03:58 Acetaminophen Level Ordered. EDMS 03:58 Basic Metabolic Profile Ordered. EDMS 03:58 Complete Blood Count Ordered. EDMS 03:58 Drug Eval Toxicology ED Only Ordered. EDMS 03:58 Ethyl Alcohol (ethanol) Ordered. EDMS 03:58 Liver Profile Ordered. EDMS 03:58 Salicylate Level Ordered. EDMS 03:58 Thyroid Stimulating Hormone Ordered. EDMS 04:19 Financial registration complete. pm4 04:20 [facility] [place] Agreement was scanned into [employer] and attached to record. pm4 05:00 Consult PFS/PSA/Clinical Molecular Geneticist complete. cl 05:00 Consult PFS/PSA/Clinical Molecular Geneticist: Patient's case requires discussion with on-call cl Psychiatrist complete. 05:00 PSA/PFS to call Nursing Nanny Babysitter, to enter patient data on [place] Safe Act if patient cl involuntarily admitted or transferred for SI or HI complete. 05:14 Acetaminophen Level Reviewed. br1 05:14 Drug Eval Toxicology ED Only Reviewed. br1 05:14 Liver Profile Reviewed. br1 05:14 Salicylate Level Reviewed. br1 05:14 Basic Metabolic Profile Reviewed. br1 05:14 Complete Blood Count Reviewed. br1 05:14 Ethyl Alcohol (ethanol) Reviewed. br1 05:14 Thyroid Stimulating Hormone Reviewed. br1 05:14 Consult PFS/PSA/Socail Worker: Cleared medically for eval ordered. br1 05:20 Consult PFS/PSA/Socail Worker: Cleared medically for eval complete. cl 05:35 MHE Legal paperwork was scanned into [employer] and attached to record. cl 05:35 Admit to [facility]: ordered. EDMS 05:36 REGULAR DIET ordered. EDMS 14:10 T-Sheet-- Draft Copy was scanned into [employer] and attached to record. gb Signatures: Dispatcher [employer] EDMS Chadwick Jose, PSA PSA cl Ibeth Manrique, Reg Reg gb Jonny Parikh MD MD br1 Jasmin Childers RN RN [id number] Caitlin Cordova RN RN sls1 Aimee CoreyRN RN nn1 Matthew Walters, Reg Reg pm4 The chart was reviewed and I authenticate all verbal orders and agree with the evaluation and treatment provided.Attachments: 04:20 [facility] Payment Agreement pm4 14:10 T-Sheet-- Draft Copy gb Chart Complete MTDD
--- NOTE | 2016-07-11 12:38 | IPNPDOC ---
Assessment/Plan Date Seen The patient was seen on 07/11/16. Problems Problems: (1) Hepatitis C Status: Chronic Problem Text: * I have spoken with pt regarding lab results. * LFTS trend dec slightly * Hepatitis RNA pos. * RUQ U/S nml. * Add fibrosure/genotype and Hep C RNA Quant to labs. * Arrange outpt f/u with ID- Dr Franco. Plan / VTE VTE Prophylaxis Ordered?: No (ambulatory) Subjective Review of Systems CC/HPI The patient is a 21-year-old male admitted with a reason for visit of Other Specified Depressive Disorder. Events since last encounter pt with no new complaints. ENT: Denies: Dysphagia, Ear Pain, Head Aches Pulmonary: Denies: Cough, Dyspnea Cardiovascular: Denies: Chest Pain, Lt Headedness, Orthopnea, Palpitations, Paroxysmal Noc. Dyspnea Genitourinary: Denies: Dysuria, Frequency, Incontinence, Retention Objective Physical Examination General Exam: Positive: Alert Eye Exam: Positive: PERRLA Chest Exam: Positive: Clear to auscultation, Normal air movement Heart Exam: Positive: Normal S1, Normal S2, Rate Normal, Regular Rhythm, Negative: Murmurs, Rubs Skin Exam: Positive: Nl turgor and temperature Vital Signs/I&O Vital Signs Date Time Temp Pulse Resp B/P Pulse Ox O2 Delivery O2 Flow Rate FiO2 07/11/16 06:48 97.8 62 16 130/73 Laboratory Data Labs 24H Laboratory Tests 2 07/11/16 06:41: Blood Urea Nitrogen 19H, Creatinine 0.94, Sodium Level 140, Potassium Level 4.4 , Chloride Level 104, Carbon Dioxide Level 30, Calcium Level 8.8, Aspartate Amino Transf (AST/SGOT) 51H, Alanine Aminotransferase (ALT/SGPT) 77, Alkaline Phosphatase 163H, Total Bilirubin 0.3, Total Protein 7.4, Albumin 3.8, Albumin/ Globulin Ratio 1.06, Anion Gap 6L, Glomerular Filtration Rate > 60.0 CBC/BMP Laboratory Tests 07/11/16 06:41 Calcium Level 8.8, Aspartate Amino Transf (AST/SGOT) 51 H, Alanine Aminotransferase (ALT/SGPT) 77, Alkaline Phosphatase 163 H, Total Bilirubin 0.3 , Total Protein 7.4, Albumin 3.8 Melva Ochoa Jul 11, 2016 12:38
--- NOTE | 2016-07-11 14:29 | IPNPDOC ---
[facility] Progress Note Progress Note DATE OF SERVICE: 07/11/16 HISTORY: Sales Assistant met with patient today to assess treatment progress on inpatient unit. Patient remains visible on unit, socializing with peers, attending groups. Patient denies all symptoms of anxiety and depression, suicidal and homicidal ideation, audiovisual hallucinations, and urge to engage in self-injurious behavior. Patient continues to deny need for inpatient treatment, continues to deny that he was engaging in preparatory behavior to hang self prior to hospitalization. Patient remains evasive regarding events which led to his current hospitalization, continues to provide vague background information. When asked if she will sign an ISAIAH for CPS patient states, "no, that's okay, I'll get in touch with him when I get out and talk to them to take care of things." When technical publications writer asked if patient has open case with CPS patient initially denies that informs technical publications writer he does have an open CPS case noting, "I'm not really sure, somebody called and said there were drugs and needles all over the house." Patient denies drugs and needles in household, denies all safety issues related to self, , child in the home. Patient reiterates his is still staying with her parents with child but describes relationship as "good," notes he is not sure if she will be returning to family trailer, informs technical publications writer he plans to discharge to home of friend and indicates he has transportation arranged for discharge today. Patient denies challenges with sleep, indicates appetite, concentration and focus, and energy levels are "very good." Patient continues to deny symptoms of irritability or agitation, impulsivity, withdrawal or craving, and physical pain. Of Note: During previous interaction with technical publications writer patient indicated he does not remember what he was arguing with his about, remains vague about legal history, indicated he was on probation for multiple episodes of driving without a license, went to senior care for violating probation due to drug-related charges. Patient also indicated harassment charge in 2011, noted was an unrelated issue. Of note: I-Stop query completed 07/09/16, no data on patient found in system. CURRENT MEDICATIONS: Please see below. VITAL SIGNS: Please see below. NEW TEST RESULTS: Hep C +. Labs on intake indicated elevated bilirubin, AST, ALT , alkaline phosphatase, and protein. Hep C lab results pending. UDS on admission was positive for amphetamine and cannabinoids. 07/09/16 EKG - SINUS RHYTHM NO PRIOR TRACING IN THE SYSTEM. MINIMAL ST SEGMENT CHANGES NOTED MAY BE RELATED TO EARLY REPOLARIZATION. PA is monitoring elevated LFTs and laceration to finger; patient denies symptoms indicating infection and denies pain. Liver ultrasound completed 07/10/16 with normal results. MENTAL STATUS EXAMINATION: Patient is a 21 year old unemployed, , father of 1 child male, who remains superficially cooperative, evasive, presents with good personal hygiene , dressed in hospital clothing, of thin build, appears stated age. Speech: Is of normal rate, rhythm, volume, coherent Thought processes: Clear, goal-directed Rate of thoughts: Within normal limits. Thought content: Logical. Abstract reasoning: Appears intact Associations: Intact Abnormal or psychotic thoughts: denies hallucinations, Delusions, Preoccupation with violence, Homicidal or suicidal ideation, and Obsessions.] Judgment: Poor Insight: Poor Oriented to: Time, place and person. Recent and Remote Memory: Appears intact, though patient reports he is unable to remember events which occurred just prior to police bringing him to Hospital. Attention Span and Concentration: Limited. Language: Normal. Fund of knowledge: Appears adequate. Mood: "I'm good, eating good and sleeping good." No lability reported or noted Affect: Full range DIAGNOSES: Unspecified mood disorder, polysubstance use disorder, rule out major depressive disorder, rule out personality disorder, ADHD by report, ASSESSMENT: Patient has adjusted to unit, is visible in milieu, has been attending groups, engaging with select peers. Patient has been eating regularly and denies challenges related to sleep. Patient remains evasive, continues to deny memory of events which occurred just prior to hospitalization, denies marital tension. Patient continues to minimize events leading to current hospitalization, remains superficially cooperative with technical publications writer, denies need to be in psychiatric hospital, denies feeling suicidal prior to police responding, and indicates he has ride arranged for discharge "today or anytime." Until today patient has declined to sign ISAIAH for contact with CPS, review coordinator is attempting to obtain collateral information from /family and will now also attempt contact with CPS to ensure safe discharge planning. Patient denies suicidal and homicidal ideation and is able to agree to alert staff should symptoms of anxiety, depression, or suicidality emerge/reemerge. Patient continues to deny need for medication to address symptoms of anxiety depression, makes no request today for Adderall XR 25 mg by mouth twice a day. With regard to relationship with , pt remains evasive, provides partial responses, indicates he has contact with her and intends to pursue contact with child after being discharged from hospital, informs technical publications writer he is "not sure" why she has gone to stay with her parents other than as a result of an argument about an unknown topic. Patient reiterates today he plans to discharge to home with friend, exhibits fleeting sign of annoyance when told he would not be discharged today. patient appointment coordinator has begun pursuing ISAIAH signatures from patient for and CPS to facilitate the collection of collateral information. Patient has been strongly encouraged to consider inpatient substance abuse treatment which she declines. Patient indicates he is willing to attend outpatient treatment at [facility] upon discharge. MANAGEMENT PLAN: Encourage patient to consider taking psychotropic medication to address symptoms of anxiety and depression Maintain safety precautions Patient to attend groups and participate in unit programming to develop coping strategies patient appointment coordinator has initiated process for obtaining collateral information in effort to further evaluate patient's psychiatric status and viability of discharge plan Evaluate need to contact CPS Engage patient in discharge planning process and arrange meeting with support system to ensure safe discharge planning when appropriate Patient to follow up with PCM and ID within 5-7 days of discharge TIME SPENT: 25 minutes Vital Signs Vital Signs Date Time Temp Pulse Resp B/P Pulse Ox O2 Delivery O2 Flow Rate FiO2 07/11/16 06:48 97.8 62 16 130/73 Laboratory Data 24H Labs Laboratory Tests 2 07/11/16 06:41: Blood Urea Nitrogen 19H, Creatinine 0.94, Sodium Level 140, Potassium Level 4.4 , Chloride Level 104, Carbon Dioxide Level 30, Calcium Level 8.8, Aspartate Amino Transf (AST/SGOT) 51H, Alanine Aminotransferase (ALT/SGPT) 77, Alkaline Phosphatase 163H, Total Bilirubin 0.3, Total Protein 7.4, Albumin 3.8, Albumin/ Globulin Ratio 1.06, Anion Gap 6L, Glomerular Filtration Rate > 60.0 07/11/16 12:52: CBC/BMP Laboratory Tests 07/11/16 06:41 Calcium Level 8.8, Aspartate Amino Transf (AST/SGOT) 51 H, Alanine Aminotransferase (ALT/SGPT) 77, Alkaline Phosphatase 163 H, Total Bilirubin 0.3 , Total Protein 7.4, Albumin 3.8 Current Medications Current Medications Medications (Trade) Dose Ordered Sig/Caridad Route PRN Reason Start Time Stop Time Status Last Admin Dose Admin Acetaminophen (Tylenol) 650 mg Q6HP PRN PO HEADACHE or DISCOMFORT 07/09/16 05:45 08/08/16 05:44 Al Hydrox/Mg Hydrox/Simethicone (Mylanta) 30 ml Q4HP PRN PO HEARTBURN/INDIGESTION 07/09/16 05:45 08/08/16 05:44 Bacitracin (Bacitracin Oint) 1 dose BID TOP 07/09/16 09:00 08/08/16 08:59 07/10/16 20:13 Home Med (Med Rec Complete!) ASDIRECTED XX 07/09/16 06:00 07/09/16 06:05 DC Magnesium Hydroxide (Milk Of Magnesia) 30 ml DAILYPRN PRN PO CONSTIPATION 07/09/16 05:45 08/08/16 05:44 Nicotine (Nicoderm Cq 21mg) 1 patch DAILY TD 07/09/16 09:00 08/08/16 08:59 07/11/16 09:13 Trazodone HCl (Desyrel) 50 mg QHSP PRN PO INSOMNIA 07/09/16 05:45 08/08/16 05:44 Allergies Coded Allergies: No Known Allergies (Unverified , 07/09/16) Sue Lin Jul 11, 2016 14:29
[2016-07-11 18:14] VITALS: BP 134/67
[2016-07-12 06:26] VITALS: BP 117/61
[2016-07-12] MEDS: NICOTINE 21MG/24HR 1 EA TRANSDERMAL TD SCH (09:44)
[2016-07-12] MEDS: BACITRACIN OINT 30GM TOP SCH ×2 (09:45→21:00)
[2016-07-12 18:06] VITALS: BP 125/60
[2016-07-13 06:13] VITALS: BP 119/60
[2016-07-13] MEDS: BACITRACIN OINT 30GM TOP SCH ×3 (09:00→21:49)
[2016-07-13] MEDS: NICOTINE 21MG/24HR 1 EA TRANSDERMAL TD SCH (09:18)
[2016-07-13 18:00] VITALS: BP 133/64
--- NOTE | 2016-07-13 23:49 | IPNPDOC ---
[facility] Progress Note Progress Note DATE OF SERVICE: 07/12/16 SUBJECTIVE: Patient reports his mood as okay this morning. Patient is restrictive in detailing his symptoms prior to this admission admission. Patient currently denies depression. Patient reports sleep and appetite are within normal limits. Patient declines offer to initiate antidepressant therapy. Patient denies headache, chest pain, abdominal pain and reports urination and bowel movements are within normal limits. Patient denies SI/HI and denies AH/VH. Patient is appropriate in statements made and in behaviors. No issues reported on the unit. OBJECTIVE: VITAL SIGNS: See below. CURRENT MEDICATIONS: See below. MENTAL STATUS EXAMINATION: Patient is a [21]-year old male, who is [ cooperative, well kempt], [looks stated age and in no acute distress.]. Speech: Is [RRR and spontaneous]. Thought processes: [Clear, linear and Goal directed]. Thought content: [Feels there is no need for him to be inpatient]. Abnormal or psychotic thoughts: [No perceptual issues noted] Judgment: [Poor] Insight: [Poor] Oriented to: [Time, place and person.] Recent and Remote Memory: [Immediate, short-term and long-term memory is intact] . Attention Span and Concentration: [ Good]. Fund of knowledge: [ Good]. Mood: [Okay]. Affect: [Depressed]. ASSESSMENT: 1.Unspecified mood disorder, polysubstance use disorder, rule out major depressive disorder, 2.ADHD by report PLAN: 1. Patient declines offer to initiate antidepressant therapy. 2. Initiation of psychotropic med per primary provider. TIME SPENT: [30] minutes. Vital Signs Vital Signs Date Time Temp Pulse Resp B/P Pulse Ox O2 Delivery O2 Flow Rate FiO2 07/13/16 18:00 97.5 68 16 133/64 Current Medications Current Medications Medications (Trade) Dose Ordered Sig/Caridad Route PRN Reason Start Time Stop Time Status Last Admin Dose Admin Acetaminophen (Tylenol) 650 mg Q6HP PRN PO HEADACHE or DISCOMFORT 07/09/16 05:45 08/08/16 05:44 Al Hydrox/Mg Hydrox/Simethicone (Mylanta) 30 ml Q4HP PRN PO HEARTBURN/INDIGESTION 07/09/16 05:45 08/08/16 05:44 Bacitracin (Bacitracin Oint) 1 dose BID TOP 07/09/16 09:00 08/08/16 08:59 07/13/16 21:49 Home Med (Med Rec Complete!) ASDIRECTED XX 07/09/16 06:00 07/09/16 06:05 DC Magnesium Hydroxide (Milk Of Magnesia) 30 ml DAILYPRN PRN PO CONSTIPATION 07/09/16 05:45 08/08/16 05:44 Nicotine (Nicoderm Cq 21mg) 1 patch DAILY TD 07/09/16 09:00 08/08/16 08:59 07/13/16 09:18 Trazodone HCl (Desyrel) 50 mg QHSP PRN PO INSOMNIA 07/09/16 05:45 08/08/16 05:44 Allergies Coded Allergies: No Known Allergies (Unverified , 07/09/16) JADEN BURROUGHS MD Jul 13, 2016 23:49
--- NOTE | 2016-07-13 23:49 | IPNPDOC ---
[facility] Progress Note Progress Note DATE OF SERVICE: 07/13/16 SUBJECTIVE: Patient reports his mood as fine this morning. Patient is focused on discharge. Patient again denies depression. Patient reports sleep and appetite are within normal limits. Patient declines offer to initiate antidepressant therapy. Patient denies SI/HI and denies AH/VH. Patient is appropriate in statements made and in behaviors. No issues reported on the unit. OBJECTIVE: VITAL SIGNS: See below. CURRENT MEDICATIONS: See below. MENTAL STATUS EXAMINATION: Patient is a [21]-year old male, who is [ cooperative, well kempt], [looks stated age and in no acute distress.]. Speech: Is [RRR and spontaneous]. Thought processes: [Clear, linear and Goal directed]. Thought content: [Focused on discharge]. Abnormal or psychotic thoughts: [No perceptual issues noted] Judgment: [Poor] Insight: [Poor] Oriented to: [Time, place and person.] Recent and Remote Memory: [Immediate, short-term and long-term memory is intact] . Attention Span and Concentration: [ Good]. Fund of knowledge: [ Good]. Mood: [fine]. Affect: [Depressed]. ASSESSMENT: 1.Unspecified mood disorder, polysubstance use disorder, rule out major depressive disorder, 2.ADHD by report PLAN: 1. Patient declines offer to initiate antidepressant therapy. 2. Initiation of psychotropic med per primary provider. TIME SPENT: [30] minutes. Vital Signs Vital Signs Date Time Temp Pulse Resp B/P Pulse Ox O2 Delivery O2 Flow Rate FiO2 07/13/16 18:00 97.5 68 16 133/64 Current Medications Current Medications Medications (Trade) Dose Ordered Sig/Caridad Route PRN Reason Start Time Stop Time Status Last Admin Dose Admin Acetaminophen (Tylenol) 650 mg Q6HP PRN PO HEADACHE or DISCOMFORT 07/09/16 05:45 08/08/16 05:44 Al Hydrox/Mg Hydrox/Simethicone (Mylanta) 30 ml Q4HP PRN PO HEARTBURN/INDIGESTION 07/09/16 05:45 08/08/16 05:44 Bacitracin (Bacitracin Oint) 1 dose BID TOP 07/09/16 09:00 08/08/16 08:59 07/13/16 21:49 Home Med (Med Rec Complete!) ASDIRECTED XX 07/09/16 06:00 07/09/16 06:05 DC Magnesium Hydroxide (Milk Of Magnesia) 30 ml DAILYPRN PRN PO CONSTIPATION 07/09/16 05:45 08/08/16 05:44 Nicotine (Nicoderm Cq 21mg) 1 patch DAILY TD 07/09/16 09:00 08/08/16 08:59 07/13/16 09:18 Trazodone HCl (Desyrel) 50 mg QHSP PRN PO INSOMNIA 07/09/16 05:45 08/08/16 05:44 Allergies Coded Allergies: No Known Allergies (Unverified , 07/09/16) JADEN BURROUGHS MD Jul 13, 2016 23:49
[2016-07-14 06:00] VITALS: BP 101/54
[2016-07-14] MEDS: NICOTINE 21MG/24HR 1 EA TRANSDERMAL TD SCH (08:26)
[2016-07-14] MEDS: BACITRACIN OINT 30GM TOP SCH ×2 (08:27→20:44)
--- NOTE | 2016-07-14 17:14 | IPNPDOC ---
[facility] Progress Note Progress Note DATE OF SERVICE: 07/14/16 HISTORY: [employer] met with patient today to assess treatment progress on inpatient unit. Patient remains visible on unit, socializing with peers, attending groups and activities. Patient denies all symptoms of anxiety and depression, suicidal and homicidal ideation, audiovisual hallucinations and urge to engage in self-injurious behavior. Patient remains evasive regarding events which led to his current hospitalization, does not provide any information that is not asked for. Pt. reportedly will not sign an ISAIAH for CPS. Patient denies challenges with sleep states he has been sleeping "8-9 hours", feels rested in AM, indicates appetite, concentration, focus and energy levels are good. Patient continues to deny symptoms of irritability or agitation, impulsivity, withdrawal or craving, and physical pain. CURRENT MEDICATIONS: Please see below. Trazodone 50 mg po qhs prn for insomnia. Pt. states he has not been using. VITAL SIGNS: Please see below. 95.7 55 16 101/54 NEW TEST RESULTS: Hep C +. Labs on intake indicated elevated bilirubin, AST, ALT , alkaline phosphatase, and protein. Hep C lab results remain pending. UDS on admission was positive for amphetamine and cannabinoids. 07/09/16 EKG - SINUS RHYTHM NO PRIOR TRACING IN THE SYSTEM. MINIMAL ST SEGMENT CHANGES NOTED MAY BE RELATED TO EARLY REPOLARIZATION. PA is monitoring elevated LFTs and laceration to finger; patient denies symptoms indicating infection and denies pain. Liver ultrasound completed 07/10/16 with normal results. MENTAL STATUS EXAMINATION: Patient is a 21 year old unemployed, , father of 1 child male, who remains superficially cooperative, evasive, presents with adequate personal hygiene, dressed in hospital clothing, of thin build, appears stated age. Pt. noted to have multiple "unprofessional" tattoos per history. Speech: Is of normal rate, rhythm, volume, coherent Thought processes: Clear, goal-directed for discharge only Rate of thoughts: Within normal limits. Thought content: Logical. Abstract reasoning: Appears intact Associations: Intact Abnormal or psychotic thoughts: denies hallucinations, delusions, preoccupation with violence, homicidal or suicidal ideation, obsessions or compulsions.] Judgment: Poor Insight: Poor Oriented to: Time, place, person and surroundings. Recent and Remote Memory: Appears intact, patient reports "not really" when asked if he has any memory issues. Attention Span and Concentration: Limited. Language: Normal. Fund of knowledge: Adequate. Mood: "Good, great!." No lability reported or noted Of note: Per history dad was a suicide in 2005. Affect: Full range DIAGNOSES: Unspecified mood disorder, polysubstance use disorder, rule out major depressive disorder, rule out personality disorder, ADHD by report, ASSESSMENT: Patient has adjusted to unit, is visible in milieu, has been attending groups, engaging with select peers. Patient has been eating regularly and denies challenges related to sleep. Patient remains evasive. Patient continues to minimize events leading to current hospitalization, remains superficially cooperative with grant writer, denies need to be in psychiatric hospital. Patient has declined to sign ISAIAH until 07/11/16 for contact with CPS, surgical services coordinator is attempting to obtain collateral information from /family and will now also attempt contact with CPS to ensure safe discharge planning. Patient denies suicidal and homicidal ideation. Patient continues to deny need for medication to address symptoms of anxiety, depression. damage prevention coordinator has begun pursuing ISAIAH signatures from patient for and CPS to facilitate the collection of collateral information. Patient has been strongly encouraged to consider inpatient substance abuse treatment which he declines. Patient indicates he is willing to attend outpatient treatment at [facility] upon discharge. Pt. affirms to grant writer that he will be discharged tomorrow. MANAGEMENT PLAN: Encourage patient to consider taking psychotropic medication to address symptoms of anxiety and depression Maintain safety precautions Patient to attend groups and participate in unit programming to develop coping strategies damage prevention coordinator has initiated process for obtaining collateral information in effort to further evaluate patient's psychiatric status and viability of discharge plan Evaluate need to contact CPS Engage patient in discharge planning process and arrange meeting with support system to ensure safe discharge planning when appropriate Patient to follow up with PCM and ID within 5-7 days of discharge TIME SPENT: 25 minutes Vital Signs Vital Signs Date Time Temp Pulse Resp B/P Pulse Ox O2 Delivery O2 Flow Rate FiO2 07/14/16 06:00 95.7 55 16 101/54 Current Medications Current Medications Medications (Trade) Dose Ordered Sig/Caridad Route PRN Reason Start Time Stop Time Status Last Admin Dose Admin Acetaminophen (Tylenol) 650 mg Q6HP PRN PO HEADACHE or DISCOMFORT 07/09/16 05:45 08/08/16 05:44 Al Hydrox/Mg Hydrox/Simethicone (Mylanta) 30 ml Q4HP PRN PO HEARTBURN/INDIGESTION 07/09/16 05:45 08/08/16 05:44 Bacitracin (Bacitracin Oint) 1 dose BID TOP 07/09/16 09:00 08/08/16 08:59 07/13/16 21:49 Home Med (Med Rec Complete!) ASDIRECTED XX 07/09/16 06:00 07/09/16 06:05 DC Magnesium Hydroxide (Milk Of Magnesia) 30 ml DAILYPRN PRN PO CONSTIPATION 07/09/16 05:45 08/08/16 05:44 Nicotine (Nicoderm Cq 21mg) 1 patch DAILY TD 07/09/16 09:00 08/08/16 08:59 07/14/16 08:26 Trazodone HCl (Desyrel) 50 mg QHSP PRN PO INSOMNIA 07/09/16 05:45 08/08/16 05:44 Allergies Coded Allergies: No Known Allergies (Unverified , 07/09/16) CHINMAY MONAE NP Jul 14, 2016 17:14
[2016-07-14 18:00] VITALS: BP 131/61
[2016-07-15 06:45] VITALS: BP 114/58
[2016-07-15] MEDS ORDERED: NICO21PAT TD (08:14)
[2016-07-15] MEDS: NICOTINE 21MG/24HR 1 EA TRANSDERMAL TD SCH (08:43)
[2016-07-15] MEDS: BACITRACIN OINT 30GM TOP SCH ×2 (08:44→10:05)
[2016-07-15 10:16] LABS: ALT 79 IU/L (0-55); GGT 89 IU/L (0-65); HAPTOGLOBIN 139 mg/dL (34-200); NECROINFLAM SCORE 0.39 (0.00-0.17); NECROINFLAMM GRADE A1-A2 (.); TOTAL BILIRUBIN 0.3 mg/dL (0.0-1.2)
--- NOTE | 2016-07-15 19:53 | DS.PDOC ---
[facility] Discharge Summary Discharge Summary DATE OF ADMISSION: Jul 09, 2016 at 08:10 DATE OF DISCHARGE: Jul 15, 2016 at 11:35 HISTORY: Patient is a patient is 21-year-old, , father, unemployed male who was brought into ER by [employer] burnett on a legal pickup order. Patient indicates he does not know why the police came to his house, indicates he had been arguing with his , informs speech writer "I don't know what the fight was about." Per record, patient was seen in the emergency room in 2012 for similar problem involving verbal altercation in home at which time he apparently threatened to kill other alliance party, self and blow up a school. Patient denies memory of aforementioned events. Regarding current admission, per record , [employer] burnett responded to call involving a domestic dispute, patient was found to have engaged in suicide preparatory behavior involving hanging a noose and arranging a ladder in garage. Patient states, "the rope had been there before I ever moved in and I had brought the ladder into the garage because I needed it for something else." When questioned about laceration to fingers which , per record, occurred while patient was cutting rope, patient indicates "I was cutting rope earlier in the day to fix my dog's chain, it had nothing to do with me wanting to kill myself." Per record, dispute with pertained to not allowing him to go purchase drugs. Patient denies current symptoms of anxiety and depression, denies suicidal and homicidal ideation, denies audiovisual hallucinations, and denies urge to engage in self-injurious behavior. Patient denies history of suicide attempt, informs speech writer 1 at age 10 or 11 he thought about killing himself after his father committed suicide by shotgun. Patient indicates at the time he possessed no plan or intent. Patient initially denies any substance use/abuse at time of incident, then informs speech writer he had had "a couple of beers, maybe 2 or 3" just prior to altercation with . When asked about his UDS results, patient indicates he has a history of being diagnosed with ADHD, has a history of taking Adderall and had taken some "left over medication; I had some saved, it was my last one" just prior to incident. Patient denies symptoms of withdrawal or craving. Patient denies history of discomfort in social settings, denies history of panic , denies compulsive behaviors, and denies history of irritability, agitation, aggression, denies history of unsanctioned violence and denies having access to weapons. Patient denies symptoms of reexperiencing, avoidance, and hypervigilance, denies history of mood instability, hypomania or staci, and denies dissociative symptoms. When asked about impulsivity patient states, "maybe," indicates appetite is stable and denies recent changes to weight. Patient denies challenges with sleep describing as "great," denies nightmares symptoms. Patient informs speech writer he feels prepared to discharge to home. When asked about his and child's whereabouts patient states, "they might be her parents or they might be home I'm not sure." Patient denies having safety concerns related to himself, his , or his child in the home. Of note: I-Stop query completed 07/09/16, no data on patient found in system. PAST PSYCHIATRIC HISTORY: Prior Psychiatric Disorder: Patient denies, however, was seen in ER in 2012 for similar symptoms, in addition to expression of HI. Out Patient Treatment: Patient denies, however, told behavioral health worker at intake he participated in outpatient treatment X 1 6 years ago for substance abuse Suicidal/Self injurious: Patient denies history of suicide attempt, endorses suicidal ideation with no plan or intent X 1 at age 10 or 11 just after father' s suicide Psychotropic Medication History: Adderall XR 25 mg po BID, states he was last seen by provider and prescribed medication in 2014 and notes he would still be taking medication and had been covered by his insurance. Patient denies history of taking other psychotropic medications. Of note: I-Stop query completed, no data on patient found in system. MEDICAL HISTORY: Patient denies chronic health concerns, denies history of seizure and head injury. Patient states he fell 2 months ago and injured shoulder, has sling and does not wear. Laceration to finger, denies symptoms indicating infection and denies pain. Hep C +. Labs on intake indicated elevated bilirubin, AST, ALT, alkaline phosphatase, and protein. Hep C lab results pending. UDS on admission was positive for amphetamine and cannabinoids. 07/09/16 EKG - SINUS RHYTHM NO PRIOR TRACING IN THE SYSTEM. MINIMAL ST SEGMENT CHANGES NOTED MAY BE RELATED TO EARLY REPOLARIZATION. PA was monitoring elevated LFTs and laceration to finger; patient denies symptoms indicating infection and denies pain. Liver ultrasound completed 07/10/16 with normal results. FAMILY PSYCHIATRIC HISTORY: Patient denies family history of psychiatric problems. When questioned about father's suicide by shotgun patient states "he was an alcoholic." Patient denies knowledge of other family members participation in inpatient or outpatient psychiatric treatment, denies knowledge of family members taking psychotropic medications. SOCIAL HISTORY: Patient indicates he was born and raised in [place], [place], was raised as mother, indicates father committed suicide by way of shotgun when patient was 10 or 11 years old. Patient indicates he has 4 siblings , notes he feels he has adequate support system. Patient lives in a trailer with his of 5 months, has a 1 year 9 month old child with , denies marital tension and indicates marriage is positive and supportive. Patient denies previous marriages or children from other relationships. Patient denies history of abuse, trauma or witnessing domestic violence in the home while growing up. Patient is unemployed and states he spends much of his days caring for his son as his is employed as a caregiver to senior citizens. 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 SUBSTANCE ABUSE HISTORY: Patient initially denies history of substance abuse. Patient indicates he smokes marijuana "daily, as much as I can. My encourages me to smoke because it makes my ADHD go away." Patient's reports alcohol consumption 2 times per month, 5-6 drinks per episode. Patient smokes approximately 1 pack of cigarettes per day. Patient also states he takes "leftover" Adderall which he states he was previously prescribed, then states he last saw a prescriber in 2014. Per record, it appears patient has a history of being diagnosed with polysubstance abuse including IV heroin use, crack cocaine, and cocaine. LEGAL HISTORY: Patient states to a half years ago he was in shelter for 9 months for probation violation. Patient is evasive but notes he was on probation for driving without a license 11 times. Per record, it appears patient was in shelter for drug-related charges and harassment. Patient has protection order against him by spouse and son. TREATMENT PROGRESS ON UNIT: Patient is refused to take psychotropic medications during his stay and has adjusted to unit, has been sociable, engaging with peers , participating in unit programming. Patient has been eating regularly and denies challenges related to sleep. Patient has become increasingly less evasive , continues to deny memory of events which occurred just prior to hospitalization, but is now able to openly discuss history of marital tension and desire to resolve chasm between he and through therapy. Patient has also become more forthright regarding legal history and presence of current restraining order. Patient has signed releases to allow contact with , CPS, and friend with whom patient is planning to stay after discharge. Contact was made with friend and friend indicates home environment is drug-free adding he is able to assist patient with transportation to treatment appointments if needed. Contact was made with and CPS, both entities indicate they have no concerns with patient's discharge at this time, denies all safety issues related to patient, self and child. Patient denies symptoms of depression and anxiety, denies suicidal and homicidal ideation, denies audiovisual hallucinations, and denies urge to engage in self-injurious behavior. Patient is able to effectively engage in the safety planning process and verbalizes awareness of how to access supportive services if needed/desired. Patient indicates friend will be transporting him at time of discharge, verbalizes awareness of restraining order, agrees to go directly to [facility]'s office to be served, states he understands that he is not permitted to have contact with and child. Patient states he has no intentions of using drugs or alcohol, indicates he does not feel he needs substance abuse treatment due to feeling highly motivated to cease use. Patient was strongly encouraged to consider participating in outpatient substance abuse treatment services, is aware he has outpatient intake appointment scheduled at [facility] for psychotherapy services. CPS and patient's were made aware of patient's discharge to occur today and patient verbalizes understanding of and agreement with discharge plan. MENTAL STATUS EXAMINATION ON DISCHARGE: Patient is a 21 year old unemployed, , father of 1 child male, who is pleasant and cooperative, presents with good personal hygiene, dressed in hospital clothing, of thin build, appears stated age. Speech: Is of normal rate, rhythm, volume, coherent Thought processes: Clear, goal-directed Rate of thoughts: Within normal limits. Thought content: Logical. Abstract reasoning: Appears intact Associations: Intact Abnormal or psychotic thoughts: denies hallucinations, Delusions, Preoccupation with violence, Homicidal or suicidal ideation, and Obsessions.] Judgment: Limited Insight: Limited Oriented to: Time, place and person. Recent and Remote Memory: Appears intact, though patient reports he is unable to remember events which occurred just prior to police bringing him to Hospital. Attention Span and Concentration: Within normal limits Language: Normal. Fund of knowledge: Appears adequate. Mood: "I'm great, I'm did not hear today to get on with my life and I'm done with drugs." No lability reported or noted Affect: Full range, stable CONDITION ON DISCHARGE: Stable, no suicidal or homicidal ideation DIAGNOSES ON DISCHARGE: Unspecified mood disorder, polysubstance use disorder, rule out major depressive disorder, ADHD by report MEDICATIONS ON DISCHARGE: No psychotropic medications prescribed at discharge PLAN/FOLLOWUP ARRANGEMENTS: Patient to discharge today and to be transported by friend to retrieve restraining order and then to home with friend where he will be staying indefinitely. Patient will be participating in outpatient psychotherapy services at [facility]. Patient has been encouraged to consider participating in outpatient substance abuse treatment, is currently declining but agrees to consider. Patient to follow up with PCM and ID within 5-7 days of discharge The amount of time spent in the coordination of care for this patient was approximately 40 minutes. Vital Signs Vital Sign - Last 24 Hours 07/15/16 06:45 Temp 96.2 Pulse 54 Resp 16 B/P 114/58 Medications Scheduled Nicotine (Nicotine Transdermal Syst) 21 Mg/24 Hr Dis #14 1 PATCH TD DAILY SMOKING CESSATION Allergies Coded Allergies: No Known Allergies (Unverified , 07/09/16) Sue Lin Jul 15, 2016 19:53 Allergies Coded Allergies: No Known Allergies (Unverified , 07/09/16) Sue Lin Jul 15, 2016 19:53
[2016-07-16 14:20] LABS: HEPATITIS C QUANTITATION <15 IU/mL (.)
== END 2016-07-15 11:35 | disposition home or self-care (01) | DRG 753 ==
LOC: M ED 03:46 → M PSY 08:10
PROVIDERS: ADMIT Psychiatry & Neurology Psychiatry; ATTEND Psychiatry & Neurology Psychiatry
DX: F39 Unspecified mood [affective] disorder (principal); F32.9 Major depressive disorder, single episode, unspecified; F90.9 Attention-deficit hyperactivity disorder, unspecified type; F14.90 Cocaine use, unspecified, uncomplicated; F11.90 Opioid use, unspecified, uncomplicated; F17.200 Nicotine dependence, unspecified, uncomplicated; M25.512 Pain in left shoulder; B18.2 Chronic viral hepatitis C